=== PATIENT | male | born 1965 | race Caucasian/White ===

== ENCOUNTER 2017-12-31 12:32 | Outpatient (CLI) | payer MEDICARE ==
[2017-12-31 13:42] LABS: #Basophils 0.1 thou/uL (0.0-0.2); #Eosinphils 0.1 thou/uL (0.0-0.7); #Monocytes 0.4 thou/uL (0.11-0.59); #Neutrophils 3.2 thou/uL (1.40-6.50); %Basophils 1.5 % (0.0-1.0); %Eosinophils 1.1 % (0.0-10.0); %Lymphocytes 34.5 % (21.0-51.0); %Monocytes 6.3 % (0.0-10.0); %Neutrophils 56.5 % (42.0-75.0); Hemoglobin 12.1 g/dL (14.0-18.0); Mean Corpuscular HGB CONC 33.6 g/dL (32.0-36.0); Mean Corpuscular Hemoglobin 33.3 pg (27.0-31.0); Mean Corpuscular Volume 99.1 fl (80.0-94.0); Mean Platelet Volume 6.1 fL (7.4-10.4); Platelet Count 343 thou/uL (130-400); RBC Distribution Width 12.3 % (11.5-14.5); Red Blood Cell (RBC) Count 3.64 mill/uL (4.70-6.10); White Blood Cell (WBC) Count 5.7 thou/uL (4.8-10.8)
[2017-12-31 14:06] LABS: Anion Gap 16 mmol/L (10-20); BUN (Urea Nitrogen) 11 mg/dL (8.4-25.7); Calc. Creatinine Clearance 0 mL/min (70-130); Calcium 9.4 mg/dL (7.8-10.44); Carbon Dioxide 24 mmol/L (22-29); Chloride 102 mmol/L (98-107); Estimated GFR-MDRD 83; Glucose 83 mg/dL (70-105); Potassium 4.5 mmol/L (3.5-5.1); Sodium 137 mmol/L (136-145)
== END 2017-12-31 12:33 | disposition home or self-care (01) ==
LOC: LABBT 12:32
PROVIDERS: ATTEND Surgery
DX: Z01.812 Encounter for preprocedural laboratory examination (principal); K40.90 Unilateral inguinal hernia, without obstruction or gangrene, not specified as recurrent
CPT/HCPCS: 80048; 85025

== ENCOUNTER 2018-01-04 11:42 | Day surgery (SDC) | payer MEDICARE, OTHER ==
[2017-12-31 12:21] VITALS: BMI 24.3
[2018-01-04] MEDS ORDERED: Bupivacaine/Epinephrine 0.25% 30 ML VIAL ONE (11:50)
[2018-01-04] MEDS ORDERED: CEFAZOLIN/Water 2 GM/20 ML SYRINGE ONE (12:07)
[2018-01-04] MEDS ORDERED: Fentanyl 100 MCG/2 ML VIAL ONE ×5 (12:07→14:34)
[2018-01-04] MEDS ORDERED: HYDROmorphone 0.5 MG/0.5 ML SYRINGE ONE ×2 (12:10→13:45)
[2018-01-04] MEDS ORDERED: Promethazine HCl 25 MG/ML VIAL ONE (13:18)
[2018-01-04] MEDS ORDERED: Lidocaine 1% PF 5 ML VIAL ONE (14:34)
[2018-01-04] MEDS ORDERED: Glycopyrrolate 0.2 MG/ML 5 ML SYRINGE ONE (14:34)
[2018-01-04] MEDS ORDERED: PROPOFOL 200 MG/20 ML VIAL ONE (14:34)
[2018-01-04] MEDS ORDERED: PHENYLEPHRINE-NS 100 MCG/ML 10 ML SYRINGE ONE (14:34)
[2018-01-04] MEDS ORDERED: ePHEDrine/0.9% NaCl/PF SYRINGE 50 mg/10 ml ONE (14:34)
[2018-01-04] MEDS ORDERED: Dexamethasone 20 MG/5 ML VIAL ONE (14:34)
[2018-01-04] MEDS ORDERED: Meperidine HCl/PF 25 MG/ML VIAL ONE (14:34)
[2018-01-04] MEDS ORDERED: Ondansetron HCl/PF 4 MG/2 ML Vial ONE (14:34)
[2018-01-04] MEDS ORDERED: Ketorolac Tromethamine 30 MG/ML VIAL ONE (14:57)
--- NOTE | 2018-01-04 21:40 | OP ---
PREOPERATIVE DIAGNOSIS: Right inguinal hernia. POSTOPERATIVE DIAGNOSIS: Right inguinal hernia. PROCEDURE: Da Jayme laparoscopic robotic right inguinal hernia repair with mesh, 3D Max large. SURGEON: Thaddeus Lara MD ANESTHESIA: General. ESTIMATED BLOOD LOSS: Minimal. COMPLICATIONS: None. SPECIMEN: None. FINDINGS: Right inguinal hernia. TECHNIQUE: The patient was taken to the operating room and placed supine on the table. After genera l anesthetic was obtained, a Marmolejo was placed. The abdomen was shaved, and draped in a sterile fashi on. Curved incision made above the umbilicus. Cautery was used to dissect down to and score the fas leonor. Abdominal cavity was entered bluntly using a Cathryn clamp. Holding stitch of PDS was placed on each side of the fascia. Syed trocar was placed. High-flow pneumoperitoneum was obtained. Right and left abdominal 8 mm robot trocars were placed. The patient was placed in Trendelenburg position. All ports were docked to the robot. Peritoneum was opened in the right groin. Dissection was perf ormed into the preperitoneal space in the right groin. The pubic tubercle was exposed medially. The iliopectineal line fully exposed laterally all the way to the anterior superiorly iliac crest. The indirect hernia sac was dissected out of the external ring all the way back up high onto the peritone um. Cord structures were fully skeletonized. A 3D Max large mesh brought in through the right incis ion and placed the end-labeled medial aspect over the pubic tubercle medially, the mesh was laid out to cover the femoral indirect and direct components. The mesh was sewn to the pubic tubercle and to the posterior fascia using 2-0 Vicryl. The peritoneum is closed using running 3-0 Stratafix. All po rt sites were infiltrated using local anesthetic. All ports were removed under camera visualization without bleeding. Pneumoperitoneum was let down. PDS was used to close the fascial defect above the umbilicus. All incisions were irrigated and closed using 4-0 Monocryl and Dermabond. The patient w as en route to recovery in stable condition. All sponge counts, needle counts, lap counts were corre ct.
== END 2018-01-04 21:15 | disposition home or self-care (01) ==
LOC: SDC 11:42
PROVIDERS: ATTEND Surgery
PROC: 0YU54JZ Supplement Right Inguinal Region with Synthetic Substitute, Percutaneous Endoscopic Approach (ICD-10-PCS; principal; 2018-01-04)
DX: K40.90 Unilateral inguinal hernia, without obstruction or gangrene, not specified as recurrent (principal); M48.061 Spinal stenosis, lumbar region without neurogenic claudication; Z79.1 Long term (current) use of non-steroidal anti-inflammatories (NSAID); Z79.899 Other long term (current) drug therapy
CPT/HCPCS: 49650; 51798; 96374 ×2; C1781; J1100; J1170; J1885; J2001; J2175; J2405; J2550; J2704; J3010

== ENCOUNTER 2018-06-03 21:20 | Emergency (ER) | payer MEDICARE ==
[2018-06-03] MEDS ORDERED: Promethazine HCl 25 MG/ML VIAL ONE (23:09)
[2018-06-03] MEDS ORDERED: Morphine 4 MG/ML VIAL ONE (23:09)
--- NOTE | 2018-06-03 23:33 | CT ---
CT HEAD NONCONTRAST: HISTORY: Headache. Lump at preauricular area on the right. FINDINGS: There is no evidence of acute intracranial hemorrhage or infarct. The ventricles appear normal in si ze, shape, and position. There is no mass effect or shift of midline structures. The mastoid air cells, middle ear cavities, and visualized portions of the paranasal sinuses are well aerated. The temporal bones are intact without invasion of skin neoplasm. No enlarged preauricular lymph nodes are reliably demonstrated. IMPRESSION: No acute intracranial abnormalities demonstrated. Nothing to explain an acute headache. POS: [facility]
== END 2018-06-04 00:22 | disposition home or self-care (01) ==
LOC: SCSER 21:20
DX: R22.0 Localized swelling, mass and lump, head (principal); R51 Headache; F17.220 Nicotine dependence, chewing tobacco, uncomplicated
CPT/HCPCS: 70450; 96372; J2270; J2550

== ENCOUNTER 2020-06-20 21:09 | Emergency (ER) | payer MEDICARE ==
[~2020-06-20 21:09] MED LIST: Iopamidol-370 76% 500 ML 1 ML ONE
[2020-06-20] MEDS ORDERED: Morphine 4 MG/ML VIAL ONE (22:55)
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
== END 2020-06-20 23:49 | disposition home or self-care (01) ==
LOC: ERS 21:09
DX: S13.4XXA Sprain of ligaments of cervical spine, initial encounter (principal); C07 Malignant neoplasm of parotid gland; V50.5XXA Driver of pick-up truck or van injured in collision with pedestrian or animal in traffic accident, initial encounter; F17.220 Nicotine dependence, chewing tobacco, uncomplicated
CPT/HCPCS: 70450; 71260; 72125; 74177; 96374; J2270; Q9967